=== PATIENT | male | born 1955 | race Caucasian/White ===

== ENCOUNTER → 2019-05-23 | Day surgery (SDC) | payer BC ==
[~2019-05-23] MED LIST: Lactated Ringers 1,000 ML IV SCH; Propofol 200 MG/20 ML SDV IV ONE
--- NOTE | 2019-05-23 10:04 | OR ---
DATE OF OPERATION: 05/23/2019 PREOPERATIVE DIAGNOSIS: FAMILY HISTORY OF COLON CARCINOMA. POSTOPERATIVE DIAGNOSIS: FAMILY HISTORY OF COLON CARCINOMA. SURGEON: Fili Jane MD PROCEDURE: DIAGNOSTIC COLONOSCOPY WITH FORCEPS POLYP REMOVAL X1. ANESTHESIA: MAC. COMPLICATIONS: None. SPECIMEN: Small tubular adenoma, distal sigmoid colon. FINDINGS: 1. Full-length colonoscopy. 2. [id number] sigmoid diverticulosis. 3. Small tubular adenoma, less than 0.5 cm, sigmoid colon. RECOMMENDATIONS: Followup colonoscopy in 5 years. INDICATIONS: The patient has a family history of colon cancer in his mother. He is due for a 5-year endoscopy. DESCRIPTION OF PROCEDURE: The patient was prepped and draped, placed in the left lateral decubitus position. A lubricated Olympus colonoscope was inserted and easily advanced to the cecum. Direct visualization of the ileocecal valve and appendiceal orifice accomplished. The bowel prep was marginal. A lot of liquid stool throughout the colon. Most of this was suctioned, smaller lesions certainly could have been missed. Upon withdrawal, the cecum, ascending and transverse colon were benign. The patient had scattered diverticula throughout most of the left colon, starting in the proximal sigmoid and extending to the rectosigmoid junction, mild to moderate in severity. At around 45 cm, the patient had a small tubular adenoma approximately 4 mm in size removed in its entirety with 2 forceps biopsies. No other polyps, masses, ulceration, or lesions were seen. The rectal vault was benign. Retroflexion showed some perianal hemorrhoid disease. Air was suctioned, scope removed without complication. NINA/MARIELENA /[id number]
[2019-05-23 10:09] VITALS: BP 118/66; PULSE 59
== END ==
LOC: CC.SDS 08:02
PROVIDERS: ATTEND Family Medicine
DX: Z12.11 Encounter for screening for malignant neoplasm of colon (principal); D12.5 Benign neoplasm of sigmoid colon; K57.30 Diverticulosis of large intestine without perforation or abscess without bleeding; E78.5 Hyperlipidemia, unspecified; Z80.0 Family history of malignant neoplasm of digestive organs
CPT/HCPCS: 45380; J2704; J7120

== ENCOUNTER 2024-10-17 09:46 | Day surgery (SDC) | payer BC ==
[2024-10-17] MEDS: Lactated Ringers 1,000 ML IV SCH (10:28)
[2024-10-17] MEDS ORDERED: Ketamine 200 MG/20 ML MDV ONE (10:45)
[2024-10-17] MEDS ORDERED: fentaNYL 50 MCG/ML SDV ONE (10:45)
[2024-10-17] MEDS ORDERED: Propofol 200 MG/20 ML SDV ONE (10:45)
[2024-10-17 11:56] VITALS: PULSE 60
[2024-10-17 13:01] VITALS: BP 90/50
== END 2024-10-17 12:22 | disposition home or self-care (01) ==
LOC: CC.SDS 09:46
PROVIDERS: ATTEND Family Medicine
DX: Z12.11 Encounter for screening for malignant neoplasm of colon (principal); D12.0 Benign neoplasm of cecum; K57.30 Diverticulosis of large intestine without perforation or abscess without bleeding; K64.8 Other hemorrhoids; E78.5 Hyperlipidemia, unspecified; G20.A1 Parkinson's disease without dyskinesia, without mention of fluctuations; Z80.0 Family history of malignant neoplasm of digestive organs; Z79.899 Other long term (current) drug therapy; Z86.0100 Personal history of colon polyps, unspecified
CPT/HCPCS: 00811; J2704; J3010; J3490; J7120